=== PATIENT | male | born 1990 ===

== ENCOUNTER → 2021-04-01 11:52 | Outpatient (ROUT) | payer OTHER, SELFPAY ==
[2021-04-01 13:01] LABS: COVID19 -Nasal RAPID Negative (Negative)
== END ==
PROVIDERS: Visit Provider Family Medicine
DX: Z20.822 Contact with and (suspected) exposure to COVID-19 (principal)
CPT/HCPCS: 87635

== ENCOUNTER → 2021-05-11 12:27 | Outpatient (ROUT) | payer OTHER, SELFPAY ==
[2021-05-11 13:54] LABS: COVID19 -Nasal RAPID Negative (Negative)
== END ==
PROVIDERS: Visit Provider Family Medicine
DX: Z20.822 Contact with and (suspected) exposure to COVID-19 (principal)
CPT/HCPCS: 87635